=== PATIENT | female | born 1945 | race Two or more races ===

== ENCOUNTER 2021-08-06 12:36 | Outpatient (CLI) | payer OTHER ==
[~2021-08-06 12:36] MED LIST: CIPRO500 MG PO; DIOVAN40 MG; SYNTHROID50 MCG
== END 2021-08-06 12:37 | disposition home or self-care (01) ==
LOC: NUCLEAR 12:36
PROVIDERS: ATTEND Internal Medicine Cardiovascular Disease
DX: G30.9 Alzheimer's disease, unspecified (principal); R51.9 Headache, unspecified
CPT/HCPCS: 78803; A9557

== ENCOUNTER 2023-09-20 08:32 | Outpatient (CLI) | payer OTHER ==
[2023-09-20 09:29] LABS: HEMATOCRIT 39.6 % (36.0-45.00); HEMOGLOBIN 13.4 g/dL (12.0-15.00); MEAN CELL VOLUME 91.5 fL (80.00-100.00); MEAN CORPUSCULAR HEMOGLOBIN 30.9 pg (27.00-32.0); MEAN CORPUSCULAR HGB CONC 33.8 g/dl (32.0-36.0); PLATELET COUNT 280 K/uL (150-450); RED BLOOD COUNT 4.32 M/uL (4.00-6.00); RED CELL DISTRIBUTION WIDTH 13.8 % (11.5-14.5)
[2023-09-20 10:32] LABS: PH,URINE 5.5 (5.0-8.0); URINE APPEARANCE Clear; URINE BILIRRUBIN Negative (NEGATIVE); URINE BLOOD Trace; URINE COLOR Yellow; URINE GLUCOSE Negative (NEGATIVE); URINE LEUKOCYTE Moderate; URINE NITRATE Negative; URINE PROTEIN Negative (NEGATIVE); URINE UROBILINOGEN 0.2 E.U./dl
[2023-09-20 10:36] LABS: URINE BACTERIA 147.3 uL (0.0-1933); URINE EPITHELIAL CELLS 28.5 uL (0.0-38.8); URINE WBC 43.8 uL (0.0-23.2)
[2023-09-20 10:55] LABS: CALCIUM 8.8 mg/dL (8.5-10.1); CHOL HDL RATIO 2.5 (0-5.0); CREATININE SERUM 0.84 mg/dL (0.55-1.02); GFR 65.24; POTASSIUM 4.23 mEq/L (3.5-5.1); T4 TOTAL 5.84 UG/DL (4.8-13.9)
[2023-09-20 11:05] LABS: TSH 8.49 uIU/mL (0.358-3.74)
== END 2023-09-20 08:34 | disposition home or self-care (01) ==
LOC: LAB 08:32
PROVIDERS: ATTEND Internal Medicine Cardiovascular Disease
DX: E11.9 Type 2 diabetes mellitus without complications (principal); I10 Essential (primary) hypertension; E03.9 Hypothyroidism, unspecified; E78.2 Mixed hyperlipidemia